=== PATIENT | male | born 1960 | race Hispanic/Latino ===

== ENCOUNTER 2019-02-05 05:49 | Observation (INO) | payer MEDICARE ==
[~2019-02-05] VITALS: Ht 162.6 cm; Wt 66.7 kg
[2019-02-05 06:16] LABS: BASOPHILS % (AUTO) 0.6 % (0.0-5.0); EOSINOPHILS % (AUTO) 1.3 % (0.0-8.0); HEMATOCRIT 44.7 % (42-54); LYMPHOCYTES % (AUTO) 21.8 % (21.0-51.0); MEAN CORPUSCULAR HEMOGLOBIN 31.7 pg (27.0-33.0); MEAN CORPUSCULAR HGB CONC 33.6 g/dL (32.0-36.0); MEAN CORPUSCULAR VOLUME 94.3 fL (79-99); MONOCYTES % (AUTO) 9.9 % (3.0-13.0); NEUTROPHILS % (AUTO) 66.4 % (40.0-77.0); PLATELET COUNT (AUTO) 262 K/uL (130-400); RED BLOOD CELL COUNT(AUTO) 4.74 MIL/uL (4.50-6.20); RED CELL DISTRIBUTION WIDTH 12.8 % (11.0-15.5); WHITE BLOOD COUNT (AUTO) 7.3 K/uL (4.8-10.8)
[2019-02-05 06:23] LABS: CREATININE 1.1 mg/dL (0.5-1.5); POTASSIUM 3.4 mmol/L (3.5-5.1)
[2019-02-05 06:28] LABS: APPEARANCE,URINE CLEAR (CLEAR); BILIRUBIN,URINE SMALL (NEGATIVE); COLOR,URINE YELLOW (YELLOW); GLUCOSE, URINE (UA) NEGATIVE (NEGATIVE); KETONES,URINE 5 mg/dL (NEGATIVE); LEUKOCYTE ESTERASE ,URINE NEGATIVE (NEGATIVE); NITRATE,URINE NEGATIVE (NEGATIVE); OCCULT BLOOD,URINE NEGATIVE (NEGATIVE); PH,URINE 5.5 (5.0-8.0); PROTEIN,URINE TRACE mg/dL (NEGATIVE); UROBILINOGEN,URINE 0.2 mg/dL (0.2-1.0)
[2019-02-05 06:28] LABS: ALBUMIN 4.1 g/dL (3.5-5.0); BILIRUBIN,TOTAL 0.5 mg/dL (0.2-1.0); TOTAL PROTEIN, SERUM 7.7 g/dL (6.0-8.3)
[2019-02-05 06:29] LABS: INR 0.97 (0.85-1.15); PARTIAL THROMBOPLASTIN TIME 28.1 SEC (26.3-35.5); PROTHROMBIN TIME 10.2 SEC (9.6-11.6)
[2019-02-05 06:37] LABS: AMPHET/METH SCREEN,URINE NEGATIVE (NEGATIVE); BARBITURATE SCREEN, URINE NEGATIVE (NEGATIVE); BENZODIAZEPINES SCREEN,URINE POSITIVE (NEGATIVE); CANNABINOID SCREEN,URINE NEGATIVE (NEGATIVE); COCAINE SCREEN,URINE NEGATIVE (NEGATIVE); OPIATE SCREEN,URINE POSITIVE (NEGATIVE); PHENCYCLIDINE SCREEN,URINE NEGATIVE (NEGATIVE)
[2019-02-05] MEDS ORDERED: POTASSIUM CHLORIDE 20 MEQ ERTAB PO ONE ×2 (06:46→15:42)
[2019-02-05 07:24] LABS: BACTERIA,URINE Rare /HPF (None Seen); MUCUS,URINE Moderate LPF (None Seen); RBC,URINE 0-1 /HPF (0-1); SQUAMOUS EPITHELIAL CELL,UR Rare /HPF (0-2); WBC,URINE 0-1 /HPF (0-1)
[2019-02-05] MEDS ORDERED: ASPIRIN 81MG TAB.CHEW ONE (09:24)
[2019-02-05] MEDS ORDERED: ENOXAPARIN SODIUM 40 MG/0.4 ML SYRINGE SQ ONE (09:24)
[2019-02-05] MEDS: ENOXAPARIN SODIUM 40 MG/0.4 ML SYRINGE SQ SCH (09:54)
[2019-02-05] MEDS: ASPIRIN 81 MG EC TAB PO SCH (09:54)
[2019-02-05] MEDS ORDERED: ACETAMINOPHEN 325 MG TAB PO PRN (10:00)
[2019-02-05] MEDS ORDERED: ONDANSETRON HCL 4 MG/2 ML VIAL IVP PRN (10:00)
[2019-02-05 10:06] LABS: CREATINE KINASE, TOTAL 207 U/L (21-232); MYOGLOBIN 38 ng/mL (10-92); TROPONIN I < 0.04 ng/mL (0.00-0.06)
[2019-02-05 16:08] VITALS: BP 152/73
[2019-02-05] MEDS ORDERED: POTASSIUM CHLORIDE 10% ELIXIR 20 MEQ/15 ML UDCUP PO PRN (17:15)
[2019-02-05] MEDS ORDERED: POTASSIUM CHLORIDE 20MEQ/100ML 100 ML IV PRN (17:15)
[2019-02-05] MEDS ORDERED: LIDOCAINE HCL-MPF 1% 2ML VIAL IJ PRN (17:15)
[2019-02-05 17:38] LABS: CREATINE KINASE, TOTAL 105 U/L (21-232); MYOGLOBIN 35 ng/mL (10-92); TROPONIN I < 0.04 ng/mL (0.00-0.06)
[2019-02-05 19:45] VITALS: BP 152/93
[2019-02-05 23:53] VITALS: BP 115/59
[2019-02-06 03:48] VITALS: BP 120/72
[2019-02-06 03:48] LABS: HEMATOCRIT 39.9 % (42-54); MEAN CORPUSCULAR HEMOGLOBIN 32.7 pg (27.0-33.0); MEAN CORPUSCULAR HGB CONC 34.5 g/dL (32.0-36.0); MEAN CORPUSCULAR VOLUME 94.8 fL (79-99); NUCLEATED RED BLOOD CELLS 0.1 % (0.0-0.19); PLATELET COUNT (AUTO) 219 K/uL (130-400); RED BLOOD CELL COUNT(AUTO) 4.21 MIL/uL (4.50-6.20); RED CELL DISTRIBUTION WIDTH 12.7 % (11.0-15.5); WHITE BLOOD COUNT (AUTO) 5.3 K/uL (4.8-10.8)
[2019-02-06 03:54] LABS: HEMOGLOBIN A1C 5.8 % (4.0-6.0)
[2019-02-06 04:12] LABS: ALBUMIN 3.3 g/dL (3.5-5.0); BILIRUBIN,TOTAL 0.3 mg/dL (0.2-1.0); CREATININE 0.9 mg/dL (0.5-1.5); MAGNESIUM 2.1 mg/dL (1.80-2.40); PHOSPHORUS 3.7 mg/dL (2.5-4.9); THYROID STIMULATING HORMONE 2.35 uIU/mL (0.36-3.74); TOTAL PROTEIN, SERUM 6.4 g/dL (6.0-8.3)
[2019-02-06 07:00] VITALS: BP 154/77
--- NOTE | 2019-02-06 07:35 | NUR ---
ASSESSMENT ENCOUNTERED PT A&OX3, CALM COOPERATIVE AND DOES NOT APPEAR TO BE IN ANY DISTRESS NOR ANY NEURO DEFICITS PRESENT. PT DENIES PAIN, SOB, NAUSEA. PT DOES C/O LEFT SIDED NUMBNESS AND TICKLING TO LEFT UPPER AND LOWER EXTREMITIES AND FACE THAT HAS IMPROVED. PT IS AMBULATORY, GAIT SLOW BUT STEADY WITH STAND BY ASSIST. PT IS ABLE TO TOLERATE FOODS AND FLUIDS WITH NO THROAT CLEARING OR COUGH. CALL LIGHT WITHIN REACH, FAMILY AT BEDSIDE.
[2019-02-06] MEDS ORDERED: PANTOPRAZOLE 40 MG/VIAL IVP SCH (09:00)
[2019-02-06] MEDS ORDERED: LOVA40TA2 PO (09:24)
[2019-02-06] MEDS ORDERED: LISI-613 PO (09:24)
[2019-02-06] MEDS ORDERED: SERT50TA12 PO (09:24)
[2019-02-06] MEDS ORDERED: ROPI1TAB11 PO (09:24)
[2019-02-06] MEDS ORDERED: TRAM50TA4 PO (09:24)
[2019-02-06] MEDS: ASPIRIN 81 MG EC TAB PO SCH (09:26)
[2019-02-06] MEDS: ENOXAPARIN SODIUM 40 MG/0.4 ML SYRINGE SQ SCH (09:27)
[2019-02-06] MEDS ORDERED: TYL3 PO (09:40)
--- NOTE | 2019-02-06 10:00 | NUR ---
DYSPHAGIA EVAL COMPLETE. -S/S OF ASPIRATION. RECOMMEND REGULAR, THIN LIQUID DIET; PILLS WHOLE WITH LIQUIDS. PATIENT INFORMATION: Pt IS A 58 Y.O. MALE REFERRED FOR A BEDSIDE DYSPHAGIA EVALUATION SECONDARY TO POSSIBLE CVA. Pt AAOX3 AND SERVED THE PRIMARY INFORMANT FOR MEDICAL AND SOCIAL HISTORY. Pt DESCRIBES THAT HE HAD SLURRED SPEECH AND LEFT SIDED WEAKNESS WHEN HE WAS ADMITTED, WHICH HAS SINCE RESOLVED. Pt HAS A PAST MEDICAL HISTORY SIGNIFICANT FOR ARTHRITIS, ANXIETY, HYPERTENSION, ELBOW SURGERY, NECK SURGERY, AND SHOULDER ROTATOR CUFF SURGERY. EVALUATION: SWALLOW FUNCTION AND EFFICIENCY WITHIN FUNCTIONAL LIMITS. ORAL MOTOR STRENGTH, COORDINATION, AND ROM WITHIN FUNCTIONAL LIMITS. LARYNGEAL ELEVATION/EXCURSION STRONG WITH TIMELY PHARYNGEAL RESPONSE. NO OVERT SIGNS OR SYMPTOMS OF ASPIRATION PRESENT AT BEDSIDE. VOCAL QUALITY CLEAR WITH NO THROAT CLEAR OR COUGH RESPONSE PRESENT. RECOMMENDATIONS: 1. REGULAR TEXTURE, THIN LIQUID DIET; PILLS WHOLE WITH LIQUIDS. 2. COMPENSATORY STRATEGIES (PROPHYLAXIS): *SEATED AT 90 DEGREE ANGLE G-CODES SWALLOWING: [id number] Addendum: 02/06/19 at 1149 by RODGER MAK [facility] Amended: Links added.
--- NOTE | 2019-02-06 10:15 | NUR ---
COGNITIVE EVAL COMPLETE. COGNITIVE-LINGUISTIC ABILITIES WITHIN FUNCTIONAL LIMITS. PATIENT INFORMATION: Pt IS A 58 YEAR OLD MALE REFERRED FOR A COGNITIVE-LINGUISTIC EVALUATION SECONDARY TO POSSIBLE CVA. Pt AAOX3 AND SERVED THE PRIMARY INFORMANT FOR MEDICAL AND SOCIAL HISTORY. Pt DESCRIBES THAT HE HAD SLURRED SPEECH AND LEFT SIDED WEAKNESS WHEN HE WAS ADMITTED, WHICH HAS SINCE RESOLVED. Pt HAS A PAST MEDICAL HISTORY SIGNIFICANT FOR ARTHRITIS, ANXIETY, HYPERTENSION, ELBOW SURGERY, NECK SURGERY, and SHOULDER ROTATOR CUFF SURGERY. EVALUATION: Pt AAOX3. Pt REQUESTS WANTS AND NEEDS INDEPENDENTLY. Pt INTELLIGIBLE AT 100% ACCURACY TO THE UNFAMILIAR LISTENER. Pt COMMUNICATING AT CONVERSATIONAL LEVEL WITH NO DEFICITS IDENTIFIED AT THIS TIME. Pt COMPLETED COGNITIVE-LINGUISTIC EVALUATION TARGETING: ORIENTATION, ATTENTION/CONCENTRATION, MEMORY (IMMEDIATE, SHORT-TERM AND LONG-TERM), PROBLEM SOLVING, LOGIC/REASONING/INFERENCE, THOUGHT ORGANIZATION, FUNCTIONAL MATH AND TELLING TIME. Pt ABLE TO COMPLETE TASKS WITH CORRECT AND TIMELY ANSWERS TO ALL SECTIONS. G-CODES SPOKEN LANGUAGE EXPRESSION: [id number] Addendum: 02/06/19 at 1155 by RODGER MAK [facility] Amended: Links added.
[2019-02-06 11:00] VITALS: BP 156/69
[2019-02-06 16:00] VITALS: BP 152/78
[2019-02-06 19:31] VITALS: BP 158/74
[2019-02-06 23:16] VITALS: BP 130/71
[2019-02-07 03:20] LABS: HEMATOCRIT 39.6 % (42-54); MEAN CORPUSCULAR HEMOGLOBIN 32.4 pg (27.0-33.0); MEAN CORPUSCULAR HGB CONC 34.4 g/dL (32.0-36.0); MEAN CORPUSCULAR VOLUME 94.1 fL (79-99); PLATELET COUNT (AUTO) 237 K/uL (130-400); RED BLOOD CELL COUNT(AUTO) 4.21 MIL/uL (4.50-6.20); RED CELL DISTRIBUTION WIDTH 12.6 % (11.0-15.5); WHITE BLOOD COUNT (AUTO) 6.1 K/uL (4.8-10.8)
[2019-02-07 03:30] LABS: PHOSPHORUS 3.9 mg/dL (2.5-4.9); POTASSIUM 3.8 mmol/L (3.5-5.1)
[2019-02-07 03:38] VITALS: BP 129/71
[2019-02-07] MEDS: POTASSIUM CHLORIDE 20 MEQ ERTAB PO PRN ×2 (04:09→06:21)
[2019-02-07 07:00] VITALS: BP 149/76
[2019-02-07] MEDS ORDERED: PANTOPRAZOLE SODIUM 40 MG TABLET.DR PO SCH (07:30)
--- NOTE | 2019-02-07 07:35 | NUR ---
ASSESSMENT ENCOUNTERED PT AMBULATING FROM BATHROOM TO BED, A&OX3, CALM COOPERATIVE AND DOES NOT APPEAR TO BE IN ANY DISTRESS NOR ANY NEURO DEFICITS PRESENT. PT DENIES PAIN, SOB, NAUSEA, GAIT STEADY AND STRONG WITH STAND BY ASSIST, PT IS ABLE TO TOLERATE FOODS, FLUIDS AND MEDICATION WITH NO THROAT CLEARING OR COUGH. CALL LIGHT WITHIN REACH, FAMILY AT BEDSIDE.
[2019-02-07] MEDS: ENOXAPARIN SODIUM 40 MG/0.4 ML SYRINGE SQ SCH (08:42)
[2019-02-07] MEDS: ASPIRIN 81 MG EC TAB PO SCH (08:42)
[2019-02-07 11:00] VITALS: BP 152/75
[2019-02-07] MEDS ORDERED: AEC81 PO (12:03)
--- NOTE | 2019-02-07 12:10 | NUR ---
DR PYLE AT BEDSIDE UPDATE GIVEN, ORDERS RECEIVED.
--- NOTE | 2019-02-07 12:41 | NUR ---
DISCHARGE INSTRUCTIONS GIVEN, PIV REMOVED AND INTACT, DISCHARGED HOME TO FAMILY VEHICLE VIA WHEELCHAIR.
== END 2019-02-07 12:45 | disposition home or self-care (01) ==
LOC: EDH 05:49 → EDHIP 08:54 → 2DH 16:07
PROVIDERS: ADMIT Internal Medicine Nephrology; ATTEND Internal Medicine Nephrology
DX: E78.5 Hyperlipidemia, unspecified (principal); I10 Essential (primary) hypertension; M19.90 Unspecified osteoarthritis, unspecified site; R47.01 Aphasia; R93.0 Abnormal findings on diagnostic imaging of skull and head, not elsewhere classified; M48.02 Spinal stenosis, cervical region; F41.9 Anxiety disorder, unspecified; Z82.49 Family history of ischemic heart disease and other diseases of the circulatory system; Z79.899 Other long term (current) drug therapy; Z79.01 Long term (current) use of anticoagulants
CPT/HCPCS: 36415 ×3; 70450; 70544; 70547; 70551; 80048; 80053 ×2; 80061; 80305; 81001; 82550 ×3; 82948; 83036; 83735; 83874 ×2; 84100 ×2; 84443; 84484 ×3; 85025; 85027 ×2; 85610; 85730; 92522; 92610; 93005; 93306; 93880; 96372 ×2; 96374; 97161; 99291; C9113; G0378 ×50; G8978; G8979; G8980; G8981; G8982; G8983; J1650 ×3

== ENCOUNTER 2020-09-08 11:54 | Observation (INO) | payer MEDICARE ==
[~2020-09-08] VITALS: Ht 162.6 cm; Wt 74.8 kg
[~2020-09-08 11:54] MED LIST: AEC81 PO; LISI20TA24 PO; LOVA40TA2 PO; ROPI1TAB13 PO; SERT-439 PO; TRAM50TA4 PO
[2020-09-08 12:23] LABS: BASOPHILS % (AUTO) 0.4 % (0.0-5.0); EOSINOPHILS % (AUTO) 1.5 % (0.0-8.0); HEMATOCRIT 43.7 % (42-54); LYMPHOCYTES % (AUTO) 30.5 % (21.0-51.0); MEAN CORPUSCULAR HEMOGLOBIN 31.1 pg (27.0-33.0); MEAN CORPUSCULAR HGB CONC 34.1 g/dL (32.0-36.0); MEAN CORPUSCULAR VOLUME 91.2 fL (79-99); NEUTROPHILS % (AUTO) 59.2 % (40.0-77.0); PLATELET COUNT (AUTO) 280 K/uL (130-400); RED BLOOD CELL COUNT(AUTO) 4.79 MIL/uL (4.50-6.20); WHITE BLOOD COUNT (AUTO) 6.8 K/uL (4.8-10.8)
[2020-09-08 12:37] LABS: CREATININE 1.2 mg/dL (0.5-1.5); POTASSIUM 3.8 mmol/L (3.5-5.1)
[2020-09-08 12:42] LABS: ALBUMIN 3.8 g/dL (3.5-5.0); BILIRUBIN,TOTAL 0.3 mg/dL (0.2-1.0); TOTAL PROTEIN, SERUM 7.5 g/dL (6.0-8.3)
[2020-09-08 12:44] LABS: INR 1.02 (0.85-1.15); PROTHROMBIN TIME 10.9 SEC (9.6-11.6)
[2020-09-08 12:45] LABS: PARTIAL THROMBOPLASTIN TIME 27.5 SEC (26.3-35.5)
[2020-09-08] MEDS ORDERED: CLOPIDOGREL 300MG TAB ONE (12:56)
[2020-09-08 13:58] LABS: APPEARANCE,URINE Clear (CLEAR); BILIRUBIN,URINE Negative (NEGATIVE); COLOR,URINE Yellow (YELLOW); GLUCOSE, URINE (UA) Negative (NEGATIVE); KETONES,URINE Negative (NEGATIVE); LEUKOCYTE ESTERASE ,URINE Negative (NEGATIVE); NITRATE,URINE Negative (NEGATIVE); OCCULT BLOOD,URINE Negative (NEGATIVE); PROTEIN,URINE Negative (NEGATIVE)
[2020-09-08 14:08] LABS: AMPHET/METH SCREEN,URINE NEGATIVE (NEGATIVE); BARBITURATE SCREEN, URINE NEGATIVE (NEGATIVE); BENZODIAZEPINES SCREEN,URINE POSITIVE (NEGATIVE); CANNABINOID SCREEN,URINE NEGATIVE (NEGATIVE); COCAINE SCREEN,URINE NEGATIVE (NEGATIVE); OPIATE SCREEN,URINE NEGATIVE (NEGATIVE); PHENCYCLIDINE SCREEN,URINE NEGATIVE (NEGATIVE)
[2020-09-08] MEDS ORDERED: ONDANSETRON 4MG INJ IVP PRN (14:30)
[2020-09-08 16:49] VITALS: BP 157/81
[2020-09-08] MEDS ORDERED: DIAZ10TA4 PO (18:13)
[2020-09-08] MEDS ORDERED: GABA600T10 PO (18:13)
[2020-09-08] MEDS: ACETAMINOPHEN 325 MG TAB PO PRN (19:51)
[2020-09-08 20:00] VITALS: BP 158/89
[2020-09-09 01:16] VITALS: BP 111/54
[2020-09-09 04:50] LABS: BASOPHILS % (AUTO) 0.4 % (0.0-5.0); EOSINOPHILS % (AUTO) 2.5 % (0.0-8.0); HEMATOCRIT 42.3 % (42-54); LYMPHOCYTES % (AUTO) 35.9 % (21.0-51.0); MEAN CORPUSCULAR HEMOGLOBIN 31.6 pg (27.0-33.0); MEAN CORPUSCULAR HGB CONC 33.8 g/dL (32.0-36.0); MEAN CORPUSCULAR VOLUME 93.4 fL (79-99); MONOCYTES % (AUTO) 8.4 % (3.0-13.0); NEUTROPHILS % (AUTO) 52.4 % (40.0-77.0); PLATELET COUNT (AUTO) 255 K/uL (130-400); RED BLOOD CELL COUNT(AUTO) 4.53 MIL/uL (4.50-6.20); WHITE BLOOD COUNT (AUTO) 7.2 K/uL (4.8-10.8)
[2020-09-09 05:19] LABS: HEMOGLOBIN A1C 5.9 % (4.0-6.0)
[2020-09-09 05:25] LABS: ALBUMIN 3.3 g/dL (3.5-5.0); BILIRUBIN,TOTAL 0.8 mg/dL (0.2-1.0); CREATININE 1.2 mg/dL (0.5-1.5); POTASSIUM 3.8 mmol/L (3.5-5.1); THYROID STIMULATING HORMONE 2.58 uIU/mL (0.36-3.74); TOTAL PROTEIN, SERUM 6.9 g/dL (6.0-8.3)
[2020-09-09 05:34] VITALS: BP 128/79
[2020-09-09] MEDS: PANTOPRAZOLE 40 MG TAB DR PO SCH (08:13)
[2020-09-09] MEDS: ASPIRIN 325 MG TABLET PO SCH (08:14)
[2020-09-09] MEDS: ACETAMINOPHEN 325 MG TAB PO PRN (08:14)
[2020-09-09 08:49] VITALS: BP 146/77
[2020-09-09 13:37] VITALS: BP 151/70
[2020-09-09] MEDS: CLOPIDOGREL 75MG TAB PO SCH (16:24)
[2020-09-09 17:36] VITALS: BP 106/72
[2020-09-09 20:00] VITALS: BP 129/63
[2020-09-10] VITALS: BP 124/65
[2020-09-10 04:00] VITALS: BP 135/75
[2020-09-10 04:01] LABS: HEMATOCRIT 43.2 % (42-54); MEAN CORPUSCULAR HEMOGLOBIN 31.2 pg (27.0-33.0); MEAN CORPUSCULAR HGB CONC 33.8 g/dL (32.0-36.0); MEAN CORPUSCULAR VOLUME 92.3 fL (79-99); RED BLOOD CELL COUNT(AUTO) 4.68 MIL/uL (4.50-6.20); RED CELL DISTRIBUTION WIDTH 11.9 % (11.0-15.5); WHITE BLOOD COUNT (AUTO) 7.5 K/uL (4.8-10.8)
[2020-09-10 04:18] LABS: CREATININE 1.1 mg/dL (0.5-1.5); POTASSIUM 4.2 mmol/L (3.5-5.1)
[2020-09-10 07:59] VITALS: BP 152/79
[2020-09-10] MEDS: ASPIRIN 325 MG TABLET PO SCH (09:06)
[2020-09-10] MEDS: CLOPIDOGREL 75MG TAB PO SCH (09:06)
[2020-09-10] MEDS: PANTOPRAZOLE 40 MG TAB DR PO SCH (09:06)
[2020-09-10] MEDS: ACETAMINOPHEN 325 MG TAB PO PRN (11:52)
[2020-09-10 12:00] VITALS: BP 173/86
[2020-09-10] MEDS ORDERED: CLOP75TA14 PO (13:26)
== END 2020-09-10 14:20 | disposition home or self-care (01) ==
LOC: EDH 11:54 → 4DH 13:30
PROVIDERS: ADMIT Internal Medicine Nephrology; ATTEND Internal Medicine Nephrology
DX: I69.354 Hemiplegia and hemiparesis following cerebral infarction affecting left non-dominant side (principal); F41.1 Generalized anxiety disorder; E78.5 Hyperlipidemia, unspecified; I10 Essential (primary) hypertension; G45.9 Transient cerebral ischemic attack, unspecified; M13.0 Polyarthritis, unspecified; F17.200 Nicotine dependence, unspecified, uncomplicated; Z79.82 Long term (current) use of aspirin; Z79.02 Long term (current) use of antithrombotics/antiplatelets; Z79.899 Other long term (current) drug therapy
CPT/HCPCS: 36415 ×3; 70450; 70544; 70551; 71045; 80048; 80053 ×2; 80061; 80305; 81003; 82550; 82948; 83036; 83721; 84443; 84484; 85025 ×2; 85027; 85610; 85730; 92522; 92610; 93005; 93306; 93356; 93880; 97161; 99285; G0378 ×48; G8978; G8979; G8980; G8981; G8982; G8983

== ENCOUNTER 2021-10-07 16:22 | Observation (INO) | payer MEDICARE ==
[~2021-10-07] VITALS: Ht 162.6 cm; Wt 73.0 kg
[~2021-10-07 16:22] MED LIST changes: +CLOP75TA14 PO; +DIAZ10TA4 PO; +GABA600T10 PO; -LOVA40TA2 PO; -ROPI1TAB13 PO; -SERT-439 PO; -TRAM50TA4 PO
[2021-10-07 16:53] LABS: BASOPHILS % (AUTO) 0.5 % (0.0-5.0); EOSINOPHILS % (AUTO) 1.6 % (0.0-8.0); HEMATOCRIT 46.3 % (42-54); LYMPHOCYTES % (AUTO) 26.9 % (21.0-51.0); MEAN CORPUSCULAR HEMOGLOBIN 31.5 pg (27.0-33.0); MEAN CORPUSCULAR HGB CONC 33.9 g/dL (32.0-36.0); MEAN CORPUSCULAR VOLUME 92.8 fL (79-99); MONOCYTES % (AUTO) 7.9 % (3.0-13.0); NEUTROPHILS % (AUTO) 62.6 % (40.0-77.0); PLATELET COUNT (AUTO) 285 K/uL (130-400); RED BLOOD CELL COUNT(AUTO) 4.99 MIL/uL (4.50-6.20); RED CELL DISTRIBUTION WIDTH 12.1 % (11.0-15.5); WHITE BLOOD COUNT (AUTO) 7.5 K/uL (4.8-10.8)
[2021-10-07 17:01] LABS: CREATININE 1.1 mg/dL (0.5-1.5); POTASSIUM 4.1 mmol/L (3.5-5.1)
[2021-10-07 17:03] LABS: INR 1.01 (0.85-1.15)
[2021-10-07 17:04] LABS: PARTIAL THROMBOPLASTIN TIME 27.8 SEC (26.3-35.5)
[2021-10-07 17:05] LABS: ALBUMIN 4.5 g/dL (3.5-5.0); BILIRUBIN,TOTAL 0.7 mg/dL (0.2-1.0); TOTAL PROTEIN, SERUM 8.4 g/dL (6.0-8.3)
[2021-10-07] MEDS ORDERED: 0.9%NACL 1000ML 1,000 ML IV ONE (17:30)
[2021-10-07 17:32] LABS: APPEARANCE,URINE Clear (CLEAR); BILIRUBIN,URINE Negative (NEGATIVE); COLOR,URINE Yellow (YELLOW); GLUCOSE, URINE (UA) Negative (NEGATIVE); KETONES,URINE Negative (NEGATIVE); LEUKOCYTE ESTERASE ,URINE Negative (NEGATIVE); NITRATE,URINE Negative (NEGATIVE); OCCULT BLOOD,URINE Negative (NEGATIVE); PROTEIN,URINE Negative (NEGATIVE); UROBILINOGEN,URINE 0.2 mg/dL (0.2-1.0)
[2021-10-07] MEDS ORDERED: LORAZEPAM 1 MG TABLET PO PRN (19:30)
[2021-10-07] MEDS ORDERED: ONDANSETRON 4MG INJ IV PRN (19:30)
[2021-10-07 19:37] LABS: APPEARANCE,URINE Clear (CLEAR); BILIRUBIN,URINE Negative (NEGATIVE); COLOR,URINE Yellow (YELLOW); GLUCOSE, URINE (UA) Negative (NEGATIVE); KETONES,URINE Negative (NEGATIVE); LEUKOCYTE ESTERASE ,URINE Trace (NEGATIVE); NITRATE,URINE Negative (NEGATIVE); OCCULT BLOOD,URINE Negative (NEGATIVE); PROTEIN,URINE Negative (NEGATIVE); UROBILINOGEN,URINE 0.2 mg/dL (0.2-1.0)
[2021-10-07 19:52] LABS: BACTERIA,URINE Rare /HPF (None Seen); RBC,URINE 0-1 /HPF (0-1); SQUAMOUS EPITHELIAL CELL,UR Rare /HPF (0-2); WBC,URINE 0-1 /HPF (0-1)
[2021-10-07] MEDS: 0.9%NACL 1000ML 1,000 ML IV SCH (21:44)
[2021-10-07] MEDS ORDERED: DIAZEPAM 5 MG TABLET PO ONE (22:30)
[2021-10-07] MEDS ORDERED: ACET-2521 PO (23:42)
[2021-10-07] MEDS ORDERED: LISI20TA24 PO (23:42)
[2021-10-07] MEDS ORDERED: CLOP75TA32 PO (23:42)
[2021-10-07] MEDS ORDERED: DIAZ10TA4 PO (23:42)
[2021-10-07] MEDS ORDERED: BUSP5TAB3 PO (23:42)
[2021-10-07] MEDS ORDERED: AEC81 PO (23:42)
[2021-10-08 05:46] LABS: BASOPHILS % (AUTO) 0.4 % (0.0-5.0); HEMATOCRIT 42.9 % (42-54); LYMPHOCYTES % (AUTO) 28.3 % (21.0-51.0); MEAN CORPUSCULAR HGB CONC 33.3 g/dL (32.0-36.0); MEAN CORPUSCULAR VOLUME 93.1 fL (79-99); MONOCYTES % (AUTO) 8.7 % (3.0-13.0); NEUTROPHILS % (AUTO) 60.4 % (40.0-77.0); PLATELET COUNT (AUTO) 232 K/uL (130-400); RED BLOOD CELL COUNT(AUTO) 4.61 MIL/uL (4.50-6.20); WHITE BLOOD COUNT (AUTO) 5.5 K/uL (4.8-10.8)
[2021-10-08 06:02] LABS: CREATININE 0.9 mg/dL (0.5-1.5); MAGNESIUM 2.1 mg/dL (1.80-2.40); PHOSPHORUS 3.4 mg/dL (2.5-4.9); POTASSIUM 4.5 mmol/L (3.5-5.1)
[2021-10-08] MEDS: CLOPIDOGREL 75MG TAB PO SCH (07:10)
[2021-10-08] MEDS: ASPIRIN 81MG CHEW TAB PO SCH (09:05)
[2021-10-08] MEDS: 0.9%NACL 1000ML 1,000 ML IV SCH ×2 (09:05→23:32)
[2021-10-08] MEDS: FAMOTIDINE 20MG TAB PO SCH (09:05)
[2021-10-08] MEDS: PHARMACY COMMUNICATION MISC SCH ×2 (13:00→17:00)
[2021-10-08] MEDS ORDERED: ACETAMINOPHEN 650MG ER TAB PO SCH (13:00)
[2021-10-08 13:47] LABS: THYROID STIMULATING HORMONE 1.15 uIU/mL (0.36-3.74)
[2021-10-08] MEDS: LISINOPRIL 20 MG TABLET PO SCH (13:51)
[2021-10-08] MEDS ORDERED: DIAZEPAM 5 MG TABLET PO PRN (20:30)
[2021-10-08] MEDS: BUSPIRONE HCL 5 MG TABLET PO SCH (20:32)
[2021-10-08] MEDS: ACETAMINOPHEN 650MG ER TAB PO SCH (20:32)
[2021-10-08] MEDS ORDERED: ATORVASTATIN 40 MG TABLET PO SCH (21:00)
[2021-10-09] MEDS: ACETAMINOPHEN 650MG ER TAB PO SCH (03:24)
[2021-10-09 04:55] VITALS: BP 151/86
[2021-10-09] MEDS ORDERED: ACETAMINOPHEN 650MG ER TAB PO PRN (06:00)
[2021-10-09 06:29] LABS: BASOPHILS % (AUTO) 0.6 % (0.0-5.0); EOSINOPHILS % (AUTO) 1.6 % (0.0-8.0); HEMATOCRIT 43.1 % (42-54); MEAN CORPUSCULAR HEMOGLOBIN 31.5 pg (27.0-33.0); MEAN CORPUSCULAR HGB CONC 33.9 g/dL (32.0-36.0); MEAN CORPUSCULAR VOLUME 93.1 fL (79-99); MONOCYTES % (AUTO) 8.9 % (3.0-13.0); NEUTROPHILS % (AUTO) 63.4 % (40.0-77.0); PLATELET COUNT (AUTO) 248 K/uL (130-400); RED BLOOD CELL COUNT(AUTO) 4.63 MIL/uL (4.50-6.20); RED CELL DISTRIBUTION WIDTH 11.9 % (11.0-15.5); WHITE BLOOD COUNT (AUTO) 6.2 K/uL (4.8-10.8)
[2021-10-09 06:46] LABS: CREATININE 1.1 mg/dL (0.5-1.5); POTASSIUM 4.4 mmol/L (3.5-5.1)
[2021-10-09 08:07] VITALS: BP 170/82
[2021-10-09] MEDS: BUSPIRONE HCL 5 MG TABLET PO SCH (09:29)
[2021-10-09] MEDS: LISINOPRIL 20 MG TABLET PO SCH (09:29)
[2021-10-09] MEDS: CLOPIDOGREL 75MG TAB PO SCH (09:30)
[2021-10-09] MEDS: FAMOTIDINE 20MG TAB PO SCH (09:31)
[2021-10-09] MEDS: ASPIRIN 81MG CHEW TAB PO SCH (09:31)
[2021-10-09 11:34] VITALS: BP 147/78
[2021-10-09 15:57] VITALS: BP 148/79
== END 2021-10-09 18:20 | disposition home or self-care (01) ==
LOC: EDH 16:22 → EDHIP 19:14 → 3AH 10-09 03:57
PROVIDERS: ADMIT Internal Medicine; ATTEND Internal Medicine
DX: F41.0 Panic disorder [episodic paroxysmal anxiety] (principal); F41.1 Generalized anxiety disorder; R20.2 Paresthesia of skin; E87.6 Hypokalemia; I10 Essential (primary) hypertension; E11.41 Type 2 diabetes mellitus with diabetic mononeuropathy; E83.42 Hypomagnesemia; E83.51 Hypocalcemia; F32.A Depression, unspecified; R11.2 Nausea with vomiting, unspecified; R47.9 Unspecified speech disturbances; F43.10 Post-traumatic stress disorder, unspecified; F17.290 Nicotine dependence, other tobacco product, uncomplicated; Z86.73 Personal history of transient ischemic attack (TIA), and cerebral infarction without residual deficits; Z79.899 Other long term (current) drug therapy; Z79.82 Long term (current) use of aspirin; Z79.02 Long term (current) use of antithrombotics/antiplatelets
CPT/HCPCS: 36415 ×3; 70450; 70551; 74176; 80048 ×2; 80053; 80061; 81001; 81003; 83735; 84100; 84443; 84484 ×2; 85025 ×3; 85610; 85730; 92522; 92610; 93005; 96360; 96361 ×3; 97161; 99285; G0378 ×47; J7030

== ENCOUNTER 2022-11-19 13:17 | Emergency (ER) | payer MEDICARE, OTHER ==
[~2022-11-19] VITALS: Ht 162.6 cm; Wt 76.2 kg
[~2022-11-19 13:17] MED LIST changes: +ACET-2521 PO; -CLOP75TA14 PO; +CLOP75TA32 PO; -DIAZ10TA4 PO; -GABA600T10 PO
[2022-11-19 14:31] LABS: BASOPHILS % (AUTO) 0.3 % (0.0-5.0); EOSINOPHILS % (AUTO) 0.4 % (0.0-8.0); HEMATOCRIT 44.5 % (42-54); LYMPHOCYTES % (AUTO) 16.9 % (21.0-51.0); MEAN CORPUSCULAR HEMOGLOBIN 31.3 pg (27.0-33.0); MEAN CORPUSCULAR HGB CONC 34.2 g/dL (32.0-36.0); MEAN CORPUSCULAR VOLUME 91.8 fL (79-99); MONOCYTES % (AUTO) 6.1 % (3.0-13.0); PLATELET COUNT (AUTO) 287 K/uL (130-400); RED BLOOD CELL COUNT(AUTO) 4.85 MIL/uL (4.50-6.20); RED CELL DISTRIBUTION WIDTH 12.1 % (11.0-15.5); WHITE BLOOD COUNT (AUTO) 9.8 K/uL (4.8-10.8)
[2022-11-19 14:38] LABS: CREATININE 1.1 mg/dL (0.5-1.5); POTASSIUM 3.6 mmol/L (3.5-5.1)
[2022-11-19 14:44] LABS: ALBUMIN 4.3 g/dL (3.5-5.0); MAGNESIUM 2.1 mg/dL (1.80-2.40)
[2022-11-19 15:58] VITALS: BP 143/74
== END 2022-11-19 17:07 | disposition home or self-care (01) ==
LOC: EDH 13:17
DX: M25.512 Pain in left shoulder (principal); M25.511 Pain in right shoulder; R51.9 Headache, unspecified; I10 Essential (primary) hypertension; Z79.899 Other long term (current) drug therapy; Z79.82 Long term (current) use of aspirin; Z98.890 Other specified postprocedural states
CPT/HCPCS: 36415; 70450; 73030; 80053; 83735; 84484; 85025; 93005

== ENCOUNTER 2025-03-24 00:03 | Observation (INO) | payer OTHER ==
[~2025-03-24] VITALS: Ht 162.6 cm; Wt 69.8 kg
[2025-03-24] VITALS (8 sets, daily range): BP systolic 134–174; BP diastolic 68–86; PULSE 53–71; RESP 18–20; TEMP 97.4–98.2; O2SAT 65–99
[~2025-03-24 00:03] MED LIST changes: +OSEL75 PO
--- NOTE | 2025-03-24 00:07 | ERN ---
ED Note History of Present Illness Stated Complaint: EPIGASTRIC/SUBSTERNAL PAIN RADIATES TO R CHEST Chief Complaint: Chest Pain Time Seen by MD: 00:06 Allergies: Coded Allergies: No Known Drug Allergies (Verified Allergy, Unknown, 02/05/19) Home Meds Active Scripts Oseltamivir Phosphate (Tamiflu) 75 Mg Cap, 75 MG PO BID for 5 Days, #10 CAP 0 Refills Prov:RACHEL WATERMAN BAG PRESS OPERATOR 09/22/23 Reported Medications Acetaminophen (Arthritis Pain Relief) 650 Mg Tablet.er, 650 MG PO AD, TAB 10/07/21 Aspirin (ASPIRIN 81 MG ECTAB) 81 Mg Ectab, 81 MG PO DAILY, TAB.EC 10/07/21 Lisinopril (Lisinopril) 20 Mg Tablet, 20 MG PO DAILY, TAB 10/07/21 Clopidogrel Bisulfate (Clopidogrel) 75 Mg Tablet, 75 MG PO DAILY, TAB 10/07/21 Past Medical History Past Medical History: Anxiety, Hypertension Surgical History: None Surgical History Other: RIGHT SHOULDER, RIGHT FORARM Review of System Dictation Constitutional: Negative for fever,chills, and weight loss Eyes: Negative for injury, pain,redness, and discharge ENT: Negative for injury,pain or swelling Cardiovascular: Negative for chest pain, palpitations, and edema Respiratory: Negative for shortness of breath, cough, and wheezing, Abdomen/GI: Negative for abdominal pain, nausea, vomiting, diarrhea, and constipation Back: Negative for injury and pain : Negative for injury, bleeding and discharge MS/Extremity: Negative for injury and deformity Skin: Negative for rash, and discoloration Neuro: Negative for headache, weakness, numbness, tingling, and seizure Psych: Negative for suicide ideation, homicidal ideation, and hallucinations Initial Vital Sign VS Vital Signs Date Time Temp Pulse Resp B/P (MAP) Pulse Ox O2 Delivery O2 Flow Rate FiO2 03/24/25 00:05 99.0 83 16 152/66 96 Room Air 0 03/24/25 00:20 21 Physical Exam Dictation General: awake, alert, NAD Head/Face: Normocephalic, atraumatic Eyes: PERRL, EOMI, vision at baseline ENT: oral cavity clear, TMs clear, no signs of infection Neck: Trachea midline, supple, no nuchal rigidity Cardiovascular: RRR, normal S1/S2, No MRGs, no JVD Respiratory: CTAB, no respiratory distress, No rales or wheezes Abdomen: Soft, non-tender, non-distended, normal bowel sounds, no guarding or rebound. Skin: Warm, dry, normal turgor, no rash MS/Extremity: Pulses equal, no cyanosis, neurovascular intact, FROM Neuro: COAx4, GCS 15, strength 5/5, CN 2-12 intact, normal cerebellar exam, normal gait, Psych: Normal behavior, mood, and affect normal Results (Laboratory/Radiology) Laboratory/Radiology Laboratory Tests Test 03/24/25 00:36 White Blood Count 8.9 K/uL (4.8-10.8) Red Blood Count 4.19 MIL/uL (4.50-6.20) L Hemoglobin 13.8 g/dL (14.0-18.0) L Hematocrit 39.9 % (42-54) L Mean Corpuscular Volume 95.2 fL (79-99) Mean Corpuscular Hemoglobin 32.9 pg (27.0-33.0) Mean Corpuscular Hemoglobin Concent 34.6 g/dL (32.0-36.0) Red Cell Distribution Width 12.0 % (11.0-15.5) Platelet Count 213 K/uL (130-400) Mean Platelet Volume 10.2 fL (7.5-10.5) Immature Granulocyte % (Auto) 0.2 % (0-1) Neutrophils (%) (Auto) 75.5 % (40.0-77.0) Lymphocytes (%) (Auto) 16.3 % (21.0-51.0) L Monocytes (%) (Auto) 7.5 % (3.0-13.0) Eosinophils (%) (Auto) 0.3 % (0.0-8.0) Basophils (%) (Auto) 0.2 % (0.0-5.0) Neutrophils # (Auto) 6.7 K/uL (1.8-7.7) Lymphocytes # (Auto) 1.5 K/uL (1.0-4.8) Monocytes # (Auto) 0.7 K/uL (0.1-1.0) Eosinophils # (Auto) 0.03 K/uL (0.00-0.70) Basophils # (Auto) 0.02 K/uL (0.00-0.20) Absolute Immature Granulocyte (auto 0.02 K/uL (0-1) Nucleated Red Blood Cells 0.0 % (0.0-0.19) Sodium Level 141 mmol/L (136-145) Potassium Level 3.6 mmol/L (3.5-5.1) Chloride Level 104 mmol/L (101-111) Carbon Dioxide Level 30 mmol/L (21-32) Blood Urea Nitrogen 15 mg/dL (7-18) Creatinine 0.9 mg/dL (0.5-1.3) Glomerular Filtration Rate Calc 96 mL/min (>90) Random Glucose 120 mg/dL (70-105) H Total Calcium 8.7 mg/dL (8.5-10.1) Troponin I High Sensitivity 10 ng/L (4-75) ED Course ED Course Orders Procedure Category Date Status Time Cbc With Differential LAB 03/24/25 Complete 00:08 Chest 1vw RAD 03/24/25 Taken 00:08 12 Lead Ekg Tracing- EKG 03/24/25 Complete Technical 00:08 Lactated Ringers PHA 03/24/25 Complete 1000ml (Lactated 00:30 Morphine 4mg Syg PHA 03/24/25 Complete (Morphine 4mg Syg) 00:30 Ondansetron 4mg Inj PHA 03/24/25 Complete (Zofran 4mg Inj) 00:30 Troponin I High LAB 03/24/25 Complete Sensitivity 00:08 Aspirin 325mg Tab PHA 03/24/25 Complete (Aspirin 325mg Tab) 00:30 Basic Metabolic Panel LAB 03/24/25 Complete 00:08 Current Medications Medications (Trade) Dose Ordered Sig/Christine Route PRN Reason Start Time Stop Time Status Last Admin Dose Admin Aspirin (Aspirin 325mg Tab) 325 mg ONCE ONCE PO 03/24/25 00:30 03/24/25 00:40 DC Lactated Ringer's 1,000 ml @ 0 mls/hr ONCE ONCE IV 03/24/25 00:30 03/24/25 00:31 DC 03/24/25 00:45 Morphine Sulfate (morPHINE 4MG SYG) 4 mg ONCE ONCE IVP 03/24/25 00:30 03/24/25 00:31 DC 03/24/25 00:42 Ondansetron HCl (zoFRAN 4MG INJ) 4 mg ONCE ONCE IVP 03/24/25 00:30 03/24/25 00:31 DC 03/24/25 00:43 Vital Signs Date Time Temp Pulse Resp B/P (MAP) Pulse Ox O2 Delivery O2 Flow Rate FiO2 03/24/25 00:20 98.8 66 11 134/77 96 Room Air* 0 21 03/24/25 00:05 99.0 83 16 152/66 96 Room Air 0 Medical Decision Making MDM MDM: Differential diagnosis: Rationale: Tests considered and ordered secondary to shared decision making include: labs, ECG and radiology Previous outside records reviewed: Old ER visits. Risk of complication and/or morbidity or mortality of patient management: None Medications-Per medication reconciliation Need for hospitalization: Patient does meet criteria for hospitalization. Need for emergency major/minor surgery: No There are no social concerns with this patient. Prescription drug management Prescriptions will include symptomatic care Patient's prior external medical records from other ER visits were reviewed by me as indicated. Prior testing and results from previous visits were reviewed. Prior tests were taken into account with medical decision making and resource utilization, independent historian/historians were used to obtain complete medical history. I independently interpreted the test that were performed, results were reviewed by me and considered findings on radiology if ordered. Medical management and examination interpretation discussions were had by me with other qualified healthcare professionals as indicated for the patient's care. DX & DISP Disposition: Inpatient Departure Impression: Primary Impression: Substernal chest pain Condition: Stable Referrals: JOSE CARMICHAEL MD (PCP) MIKAYLA GRAHAM MD Mar 24, 2025 00:07
--- NOTE | 2025-03-24 00:18 | EKG ---
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
[2025-03-24] MEDS ORDERED: ASPIRIN 325MG TAB PO ONE (00:30)
[2025-03-24 00:44] LABS: IMMATURE GRANULOCYTE ABSOLUTE 0.02 K/uL (0-1); NUCLEATED RED BLOOD CELLS 0.0 % (0.0-0.19); PLATELET COUNT (AUTO) 213 K/uL (130-400); RED BLOOD CELL COUNT(AUTO) 4.19 MIL/uL (4.50-6.20); RED CELL DISTRIBUTION WIDTH 12.0 % (11.0-15.5); WHITE BLOOD COUNT (AUTO) 8.9 K/uL (4.8-10.8)
[2025-03-24] MEDS: LACTATED RINGERS 1000ML 1,000 ML IV ONE (00:45)
[2025-03-24 00:54] LABS: CREATININE 0.9 mg/dL (0.5-1.3); GLOMERULAR FILTR. RATE CALC 96.0 mL/min (>90); GLUCOSE,RANDOM 120.0 mg/dL (70-105); SODIUM SERUM 141.0 mmol/L (136-145); UREA NITROGEN, BLOOD 15.0 mg/dL (7-18)
--- NOTE | 2025-03-24 02:23 | HMCIMG ---
EXAM: CR Chest, 1 view CLINICAL HISTORY: To evaluate chest. COMPARISON: Chest radiograph dated 09/22/2023. FINDINGS: The lungs show no infiltrates or other acute findings. No pleural effusion or pneumothorax. The cardiomediastinal silhouette is within normal limits. No acute osseous abnormality. IMPRESSION: No acute cardiopulmonary process is evident. No interval changes. /[place]
[2025-03-24] MEDS ORDERED: LACTULOSE 20 GM/30 ML UDCUP PO PRN (02:30)
[2025-03-24] MEDS ORDERED: NITROGLYCERIN 0.4 MG SL TAB SL PRN (02:30)
--- NOTE | 2025-03-24 04:14 | NUR ---
ATTEMPT TO GIVE REPORT AT THIS TIME. NOT SUCCESSFUL.
--- NOTE | 2025-03-24 05:06 | NUR ---
REPORT GIVEN ABBY LEWIS AT THIS TIME
[2025-03-24] MEDS ORDERED: AZEL6DRO6 OU (05:29)
[2025-03-24] MEDS ORDERED: DIAZ10TA4 PO (05:43)
[2025-03-24] MEDS ORDERED: ERGO500093 PO (05:43)
[2025-03-24] MEDS ORDERED: ROSU20TA98 PO (05:43)
[2025-03-24] MEDS ORDERED: LISI1TAB51 PO (05:43)
[2025-03-24] MEDS ORDERED: GABA-529 PO (05:43)
--- NOTE | 2025-03-24 05:50 | NUR ---
PATIENT ARRIVED TO FLOOR WITH SALINE LOCK, AAOX3,AMBULATING WELL NO DISTRESS NOTED, DENIES PAIN.
--- NOTE | 2025-03-24 05:55 | EKG ---
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
[2025-03-24 06:35] LABS: NUCLEATED RED BLOOD CELLS 0.0 % (0.0-0.19); PLATELET COUNT (AUTO) 228.0 K/uL (130-400); RED BLOOD CELL COUNT(AUTO) 4.47 MIL/uL (4.50-6.20); RED CELL DISTRIBUTION WIDTH 12.1 % (11.0-15.5); WHITE BLOOD COUNT (AUTO) 9.4 K/uL (4.8-10.8)
[2025-03-24 07:14] LABS: ASPARTATE AMINOTRANSFERASE 17.0 U/L (10-37); CREATININE 1.0 mg/dL (0.5-1.3); GLOMERULAR FILTR. RATE CALC 85.0 mL/min (>90); GLUCOSE,RANDOM 90.0 mg/dL (70-105); SODIUM SERUM 133.0 mmol/L (136-145); TOTAL PROTEIN, SERUM 7.9 g/dL (6.0-8.3); UREA NITROGEN, BLOOD 13.0 mg/dL (7-18)
[2025-03-24] MEDS: ASPIRIN 81MG CHEW TAB PO SCH (08:23)
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
[2025-03-24] MEDS ORDERED: ACETAMINOPHEN 650 MG PO SCH (11:00)
--- NOTE | 2025-03-24 14:32 | NUR ---
DCP: INITIAL ASSESSMENT Patient lives alone. He has no home services or DME. Patient is able to complete ADLs independently and drives. PCP is Dr. Deni Marie. Pharmacy is [facility] in [place]. Patient voiced no safety concerns regarding returning home and states he has no difficulty with housing or buying food. DCP is home. Addendum: 03/24/25 at 1439 by JAZMIN WADE Amended: Links added.
[2025-03-24] MEDS: GABAPENTIN 300 MG CAPSULE PO SCH (14:36)
[2025-03-24] MEDS: diazePAM 5 MG TAB PO PRN (14:43)
--- NOTE | 2025-03-24 16:56 | HMCSR ---
APPROVED REPORT EXAM: Two-dimensional and M-mode echocardiogram with Doppler and color Doppler. INDICATION ICD: Chest Pain 2D Dimensions RVDd4.2 cmLVEF(%)81.7 (>50%)LVED Vol(simp.)107.0 mL IVSd0.8 (0.7-1.1cm)FS(%)50 %LVES Vol(simp.)48.0 mL LVDd4.3 (3.8-5.6cm)LA (2D)3.9 (1.6-4.0cm)LVEF(%, simp.)55 % PWd1.1 (0.7-1.1cm)Ao Root(2D)3.0 (2.0-3.7cm)LA ESV INDEX (BP)20.08 mL/m2 LVDs2.2 (2.5-4.0cm)LVOT diam2.3 (1.8-2.4cm) IVC diam1.8 cm Deformation Strain Apical 4-16.8 % Apical 2-17.8 % Apical 3-17.4 % Global Strain-17.3 % M-Mode Dimensions EPSS0.5 cm Aortic Valve AoV Vmax2.7 m/Mary Peak GR34.4 mmHgLVOT Vmax1.1 m/s AoV VTI0.6 mAo Mean GR18.1 mmHgLVOT VTI0.27 m PADMINI (VMAX)1.62 cm2AVA (VTI) 1.8 cm2 Mitral Valve MV E Vmax90.1 cm/sDECEL Kkok742 ms MV A Vmax94.7 cm/sP 1/2 T57 ms E/A ratio1.0MVA (PHT)3.9 cm2 TDI E/E' Ouzfng14.2E/E' Lateral9.4 Medial E' Peak V7.40 cm/sLateral E' Peak V9.58 cm/s Pulmonary Valve PV Vmax1.0 m/sPV VTI0.25 mPV Mean GR2.3 mmHg PV Peak GR4.2 mmHg Left Ventricle The left ventricle is normal size. No regional wall motion abnormalities noted. Mild concentric left ventricular hypertrophy. Left ventricular systolic function is normal, estimated LVEF is 55-60%. Grad e 1 diastolic dysfunction. Right Ventricle The right ventricle is normal size. The right ventricular systolic function is normal. Atria The left atrium size is normal. The right atrium size is normal. Aortic Valve Aortic valve is trileaflet. The leaflets are thickened and calcified. Trace aortic regurgitation. Mil d-moderate aortic stenosis: Peak velocity 2.9 m/sec, mean gradient 18 mmHg, PADMINI 1.6cm2. Mitral Valve The mitral valve is normal in structure. The leaflets are mildly thickened and calcified. Trace diana l regurgitation. There is no mitral valve stenosis. Tricuspid Valve The tricuspid valve is normal in structure. Trace tricuspid regurgitation. RVSP is normal. Pulmonic Valve Pulmonic valve is not well visualized. Great Vessels The aortic root is normal in size. The IVC is normal in size and collapses >50% with inspiration. Pericardium There is no pericardial effusion. Conclusion The cardiac chambers are normal in size. Mild concentric left ventricular hypertrophy. No regional wall motion abnormalities noted. Left ventricular systolic function is normal, estimated LVEF is 55-60%. Grade 1 diastolic dysfunction. Mild-moderate aortic stenosis: Peak velocity 2.9 m/sec, mean gradient 18 mmHg, PADMINI 1.6cm2. Trace aortic regurgitation. Trace mitral regurgitation. Trace tricuspid regurgitation. PASP is normal. There is no pericardial effusion.
[2025-03-25] VITALS: BP 134/62; PULSE 62; RESP 20; TEMP 97.9
[2025-03-25 04:09] LABS: NUCLEATED RED BLOOD CELLS 0.0 % (0.0-0.19); PLATELET COUNT (AUTO) 190.0 K/uL (130-400); RED BLOOD CELL COUNT(AUTO) 4.25 MIL/uL (4.50-6.20); RED CELL DISTRIBUTION WIDTH 11.9 % (11.0-15.5); WHITE BLOOD COUNT (AUTO) 7.8 K/uL (4.8-10.8)
[2025-03-25 04:28] VITALS: BP 142/73; PULSE 70; RESP 20; TEMP 97.9
[2025-03-25 04:51] LABS: CREATININE 0.8 mg/dL (0.5-1.3); GLOMERULAR FILTR. RATE CALC 99.0 mL/min (>90); GLUCOSE,RANDOM 104.0 mg/dL (70-105); PHOSPHORUS 4.0 mg/dL (2.5-4.9); SODIUM SERUM 141.0 mmol/L (136-145); UREA NITROGEN, BLOOD 10.0 mg/dL (7-18)
[2025-03-25 08:00] VITALS: BP 179/79; PULSE 73; RESP 18; TEMP 98
[2025-03-25 08:34] VITALS: O2SAT 96
[2025-03-25] MEDS: LISINOPRIL 20 MG TABLET PO SCH (08:34)
[2025-03-25] MEDS ORDERED: NON-FORMULARY MEDICATION 1 EACH (Lisinopril/Hydrochlorothiazide (Lisinopril-Hctz 20-12.5 m PO SCH (09:00)
[2025-03-25] MEDS ORDERED: ASPIRIN 81 MG EC TAB PO SCH (09:00)
[2025-03-25] MEDS ORDERED: NON-FORMULARY MEDICATION 1 EACH (Rosuvastatin Calcium 1 TAB) PO SCH (09:00)
--- NOTE | 2025-03-25 09:05 | HMCIMG ---
EXAMINATION: ULTRASOUND OF THE ABDOMEN (LIMITED) WITH COLOR DOPPLER. CLINICAL HISTORY: Pain. COMPARISON: CT of the abdomen and pelvis with contrast dated 10/07/2021. TECHNIQUE: Real-time grayscale ultrasound images of the abdomen. In addition, color Doppler is medically necessary to perform in order to evaluate vascularity and blood flow. FINDINGS: Liver: Normal in caliber, the right hepatic lobe measures 15.7 cm in the craniocaudal dimension. There is increased echogenicity of the hepatic parenchyma. There is no focal hepatic abnormality or intrahepatic biliary ductal dilatation. There is normal spectral Doppler of the main portal vein. Gallbladder: Within normal limits with normal wall thickness (0.35 cm). No hyperemia or pericholecystic free fluid. There is no cholelithiasis. There is mobile sludge. Common bile duct is normal in caliber, measuring 0.26 cm. Pancreas: Normal in caliber and echotexture. No calcification or dilated pancreatic duct. The right kidney is normal in caliber, the right kidney measures 10.3 x 4.7 x 4.6 cm in its craniocaudal, AP, and transverse dimensions respectively. There is normal renal cortical thickness, and cortical echogenicity. There is no renal calculus or hydronephrosis. IMPRESSION: Hepatic steatosis. Gallbladder sludge. /Jose
--- NOTE | 2025-03-25 09:40 | DS ---
Discharge Summary Hospital Course Summary: 65-year-old male who was admitted with epigastric and right upper quadrant pain concerning for cardiac chest pain. However, upon examination the patient had reproducible ribcage pain in his serial cardiac enzymes were negative x2. 2D echo also grossly normal with intact ejection fraction and no wall motion abnormalities. Patient did well during his hospitalization. Right upper quadrant ultrasound did show some hepatic steatosis and gallbladder sludge. He was advised to exercise and lose weight. He should follow up with his primary care physician within one week. Telemetry showed sinus rhythm without any acute abnormalities. [employer] Education(s): none Procedure(s): none Assessment/Plan: ASSESSMENT: [Chest pain rule out [place] Reproducible right upper quadrant pain along costal margin History of TIAs x2 Hypertension ] PLAN: [Patient's serial cardiac enzymes have been negative x2 This is likely reproducible chest pain related to an old injury We will go ahead and obtain right upper quadrant ultrasound ] further orders as indicated Home Medications: Reported Medications Ergocalciferol (Vitamin D2) (Vitamin D2) 1,250 Mcg (44502 Unit) Capsule, 1 CAP PO QWEEK 03/24/25 Rosuvastatin Calcium (Rosuvastatin Calcium) 20 Mg Tablet, 1 TAB PO DAILY 03/24/25 Lisinopril/Hydrochlorothiazide (Lisinopril-Hctz 20-12.5 mg Tab) 20 Mg-12.5 Mg Tablet, 1 TAB PO DAILY 03/24/25 Gabapentin (Gabapentin) 100 Mg Capsule, 300 MG PO TID, CAP 03/24/25 Diazepam (Diazepam) 10 Mg Tablet, 10 MG PO DAILY PRN for ANXIETY, TAB 03/24/25 Azelastine HCl (Azelastine HCl) 0.05 % Drops, 1 DROP OU BID 1 DROP INTO AFFECTED EYE 2 TIMES PER DAY 03/24/25 Acetaminophen (Arthritis Pain Relief) 650 Mg Tablet.er, 650 MG PO AD, TAB 10/07/21 Aspirin (ASPIRIN 81 MG ECTAB) 81 Mg Ectab, 81 MG PO DAILY, TAB.EC 10/07/21 Discontinued Reported Medications Lisinopril (Lisinopril) 20 Mg Tablet, 20 MG PO DAILY, TAB 10/07/21 Clopidogrel Bisulfate (Clopidogrel) 75 Mg Tablet, 75 MG PO DAILY, TAB 10/07/21 Discontinued Scripts Oseltamivir Phosphate (Tamiflu) 75 Mg Cap, 75 MG PO BID for 5 Days, #10 CAP 0 Refills Prov:GUEVARA,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
--- NOTE | 2025-03-25 11:16 | NUR ---
DISCHARGE PT PIV DC'D PT VERBALIZED UNDERSTANDING OF DC INSTRUCTIONS PT GATHERED AND TOOK ALL BELONGINGS PT HAD NO FURTHER QUESTIONS AT TIME OF DISCHARGE
[2025-03-31] MEDS ORDERED: ERGOCALCIFEROL (VITAMIN D2) 50,000 UNIT CAPSULE PO SCH (09:00)
== END 2025-03-25 12:00 | disposition home or self-care (01) ==
LOC: EDH 00:03 → INTOOBSV 01:38 → EDHIP 01:38 → 3DH 05:20
PROVIDERS: ADMIT Internal Medicine; ATTEND Internal Medicine
DX: R07.2 Precordial pain (principal); R10.11 Right upper quadrant pain; I10 Essential (primary) hypertension; F41.9 Anxiety disorder, unspecified; K76.0 Fatty (change of) liver, not elsewhere classified; Z79.899 Other long term (current) drug therapy; Z86.73 Personal history of transient ischemic attack (TIA), and cerebral infarction without residual deficits
CPT/HCPCS: 85027 ×2; 96374; 96375; 96361; 99285; 83036; 84443; 83735 ×2; 84484 ×2; 80053; 83880; 83690; 85025; 85378; 82948 ×5; 36415 ×2; 71045; 76705; 93306; 93356; 93005 ×2; 84100; 80048; G0378 ×17; J7120; J2405; J2270